=== PATIENT | male | born 1960 | race Caucasian/White ===

== ENCOUNTER → 2016-09-11 | Outpatient (CLI) | payer OTHER | LOC: CIMAGING 14:15 | PROVIDERS: ATTEND Family Medicine Sports Medicine | DX: R05 Cough (principal); K44.9 Diaphragmatic hernia without obstruction or gangrene; I25.10 Atherosclerotic heart disease of native coronary artery without angina pectoris; M51.34 Other intervertebral disc degeneration, thoracic region; R91.8 Other nonspecific abnormal finding of lung field | CPT/HCPCS: 71250-PO ==

== ENCOUNTER 2016-10-16 01:19 | Emergency (ER) | payer OTHER ==
[2016-10-16 01:26] VITALS: TEMP 97.7
[2016-10-16] MEDS ORDERED: ONDANSETRON 4 MG/2 ML VIAL IVP ONE (01:29)
[2016-10-16] MEDS ORDERED: NS 1,000 ML IV ONE ×2 (01:29→02:43)
--- NOTE | 2016-10-16 01:29 | EDPHY ---
H & P Stated Complaint: L flank pain/LLQ pain and urgency x3 hours HPI/ROS: HPI CHIEF COMPLAINT: Left flank pain, left lower quadrant abdominal pain, nausea HISTORY OF PRESENT ILLNESS: Patient very pleasant 56-year-old male significant past medical history for coronary artery disease with 1 stent, presents to the emergency room left-sided flank pain that started 3-4 hours ago and radiating down into her left lower quadrant left testicle. No urinary symptoms. Does have nausea. No vomiting. No fever. Normal bowel movement. No history of kidney stones. No history of diverticulitis or colitis. Has not been sick recently. Patient tells me that pain has been intermittent sharp stabbing over the last 3-4 hours very severe. Does not allowed him to sit still. Past Medical History: Coronary artery disease with 1 stent Past Surgical History: PTCA Social History: Denies daily use of drugs alcohol tobacco products Family History: Noncontributory ROS REVIEW OF SYSTEMS: A comprehensive 10 point review of systems is otherwise negative aside from elements mentioned in the history of present illness. Exam Constitutional triage nursing summary reviewed, vital signs reviewed, awake/ alert. Eyes normal conjunctivae and sclera, EOMI, PERRLA. HENT normal inspection, atraumatic, moist mucus membranes, no epistaxis, neck supple/ no meningismus, no raccoon eyes. Respiratory clear to auscultation bilaterally, normal breath sounds, no respiratory distress, no wheezing. Cardiovascular rate normal, regular rhythm, no murmur, no edema, distal pulses normal. Gastrointestinal tender palpation left lower quadrant, tender palpation left CVA, no rebound, no guarding, normal bowel sounds, no distension, no pulsatile mass. Genitourinary left CVA tenderness mild Musculoskeletal no midline vertebral tenderness, full range of motion, no calf swelling, no tenderness of extremities, no meningismus, good pulses, neurovascularly intact. Skin pink, warm, & dry, no rash, skin atraumatic. Neurologic awake, alert and oriented x 3, AAOx3, moves all 4 extremities equally, motor intact, sensory intact, CN II-XII intact, normal cerebellar, normal vision, normal speech. Psychiatric normal mood/affect. Heme/Lymph/Immune no lymphadenopathy. Differential diagnosis includes but is not limited to and in no particular order : Bowel obstruction, appendicitis, gallbladder disease, diverticulitis, colitis , enteritis, perforated viscus, gastritis, GERD, esophagitis, urinary tract infection, pyelonephritis, kidney stones Medical Decision Making: Plan for this patient IV establishment blood work, urinalysis, patient be medicated with 1 L normal saline IV fluid bolus, IV Dilaudid for pain control IV Zofran may need IV Toradol once creatinine is back. Check urinalysis for blood. CT abdomen pelvis without contrast for kidney stone. Re-evaluation: CT scan of the abdomen pelvis without contrast for left flank pain The results of the study are 2 mm left UVJ stone mild hydronephrosis otherwise unremarkable The study was read by Dr. Desai I viewed the images myself on the PACS system. 0123: re-examination at this time patient is resting comfortably no acute distress. CT scan and blood work urinalysis reviewed. Shows a 2 mm left UVJ stone. Recommend urology follow-up. He understands. Urine strainer. Stover for pain control Flomax. Lots of water. Zofran for nausea. Return emergency room if there is worsening symptoms questions or concerns Source: Patient - Personal History Current Tetanus/Diphtheria Vaccine: Unsure Current Tetanus Diphtheria and Acellular Pertussis (TDAP): Unsure - Medical/Surgical History Hx Asthma: No Hx Chronic Respiratory Disease: No Hx Diabetes: No Hx Cardiac Disease: Yes Hx Renal Disease: No Hx Cirrhosis: No Hx Alcoholism: No Hx HIV/AIDS: No Hx Splenectomy or Spleen Trauma: No Other PMH: CARDIAC STENT/MIGRAINES. herniated disks in neck. stenosis in back. HTN - Social History Smoking Status: Never smoked Constitutional: Initial Vital Signs Temperature (C) 36.5 C 10/16/16 01:24 Heart Rate 47 L 10/16/16 01:24 Respiratory Rate 16 10/16/16 01:24 Blood Pressure 159/94 H 10/16/16 01:24 O2 Sat (%) 93 10/16/16 01:24 O2 Delivery Mode Room Air O2 (L/minute) 2 Allergies/Adverse Reactions: No Known Allergies Allergy (Unverified 08/30/14 09:57) Home Medications: Medication Instructions Recorded Allopurinol [Allopurinol 300 MG 300 mg PO DAILY 04/23/12 (RX)] Ascorbic Acid [Vitamin C 500 mg 1,000 mg PO DAILY 04/23/12 (*)] Cholecalciferol Vit D3 [Vitamin D3 1,000 units PO DAILY 04/23/12 (*)] Aspirin EC [Aspirin EC 325 mg (*)] 325 mg PO DAILY #30 tab 11/09/14 Rosuvastatin Calcium [Crestor] 10 mg PO DAILY 11/09/14 Hydrocodone/APAP 5/325 [Stover 1 - 2 tab PO Q4H PRN #14 tab 10/16/16 5/325] Ondansetron HCl [Zofran] 4 mg PO Q4-6PRN PRN #10 tablet 10/16/16 Tamsulosin HCl [Flomax] 0.4 mg PO DAILY #10 cap 10/16/16 Wellbutrin Xl 10/16/16 Medical Decision Making - Data Points Laboratory Results: Laboratory Results 10/16/16 01:37 10/16/16 01:37 10/16/16 10/16/16 10/16/16 01:37 01:37 01:37 WBC 5.72 10^3/uL 10^3/uL (3.80-9.50) RBC 5.18 10^6/uL 10^6/uL (4.40-6.38) Hgb 15.1 g/dL g/dL (13.7-17.5) Hct 44.0 % % (40.0-51.0) MCV 84.9 fL fL (81.5-99.8) MCH 29.2 pg pg (27.9-34.1) MCHC 34.3 g/dL g/dL (32.4-36.7) RDW 14.6 % % (11.5-15.2) Plt Count 165 10^3/uL 10^3/uL (150-400) MPV 9.3 fL fL (8.7-11.7) Neut % (Auto) 63.6 % % (39.3-74.2) Lymph % (Auto) 26.9 % % (15.0-45.0) [place] % (Auto) 7.2 % % (4.5-13.0) Eos % (Auto) 1.6 % % (0.6-7.6) Baso % (Auto) 0.2 % L % (0.3-1.7) Nucleat RBC Rel Count 0.0 % % (0.0-0.2) Absolute Neuts (auto) 3.64 10^3/uL 10^3/uL (1.70-6.50) Absolute Lymphs (auto) 1.54 10^3/uL 10^3/uL (1.00-3.00) Absolute Monos (auto) 0.41 10^3/uL 10^3/uL (0.30-0.80) Absolute Eos (auto) 0.09 10^3/uL 10^3/uL (0.03-0.40) Absolute Basos (auto) 0.01 10^3/uL L 10^3/uL (0.02-0.10) Absolute Nucleated RBC 0.00 10^3/uL 10^3/uL (0-0.01) Immature Gran % 0.5 % % (0.0-1.1) Immature Gran # 0.03 10^3/uL 10^3/uL (0.00-0.10) Sodium 144 mEq/L mEq/L (134-144) Potassium 4.5 mEq/L mEq/L (3.5-5.2) Chloride 110 mEq/L mEq/L (97-110) Carbon Dioxide 24 mEq/l mEq/l (22-31) Anion Gap 10 mEq/L mEq/L (8-16) BUN 22 mg/dL mg/dL (7-23) Creatinine 1.7 mg/dL H mg/dL (0.7-1.3) Estimated GFR 42 Glucose 167 mg/dL H mg/dL (70-100) Calcium 9.1 mg/dL mg/dL (8.5-10.4) Total Bilirubin 0.7 mg/dL mg/dL (0.1-1.4) Conjugated Bilirubin 0.4 mg/dL mg/dL (0.0-0.5) Unconjugated Bilirubin 0.3 mg/dL mg/dL (0.0-1.1) AST 39 IU/L IU/L (17-59) ALT 66 IU/L IU/L (21-72) Alkaline Phosphatase 102 IU/L IU/L (38-126) Total Protein 6.9 g/dL g/dL (6.3-8.2) Albumin 4.4 g/dL g/dL (3.5-5.0) Lipase 174.0 IU/L IU/L (23-300) Urine Color YELLOW Urine Appearance CLEAR Urine pH 5.0 (5.0-7.5) Ur Specific [place] 1.013 (1.002-1.030) Urine Protein NEGATIVE (NEGATIVE) Urine Ketones NEGATIVE (NEGATIVE) Urine Blood NEGATIVE (NEGATIVE) Urine Nitrate NEGATIVE (NEGATIVE) Urine Bilirubin NEGATIVE (NEGATIVE) Urine Urobilinogen NEGATIVE EU EU (0.2-1.0) Ur Leukocyte Esterase NEGATIVE (NEGATIVE) Ur Culture Indicated? NOT INDICATED (NI) Urine Glucose NEGATIVE (NEGATIVE) Medications Given: Discontinued Medications Hydromorphone HCl (Dilaudid) 0.5 mg IVP EDNOW ONE Stop: 10/16/16 01:35 Last Admin: 10/16/16 01:52 Dose: 0.5 mg Sodium Chloride (Ns) 1,000 mls @ 0 mls/hr IV ONCE ONE PRN Reason: Wide Open Stop: 10/16/16 01:30 Last Admin: 10/16/16 01:38 Dose: 1,000 mls Ondansetron HCl (Zofran) 4 mg IVP EDNOW ONE Stop: 10/16/16 01:30 Last Admin: 10/16/16 01:51 Dose: 4 mg Departure - Departure Disposition: Home, Routine, Self-Care Clinical Impression: Kidney stone on left side Condition: Good Instructions: Kidney Stones (ED), Renal Colic (ED) Additional Instructions: 1. Drink lots of fluids. 2. please follow up with Urology. Referrals: Favio Barcenas MD [Primary Care Provider] - As per Instructions Silver Rocha MD [Medical Doctor] - As per Instructions Prescriptions: Hydrocodone/APAP 5/325 [Stover 5/325] 1 - 2 tab PO Q4H PRN #14 tab PRN Reason: Pain, Moderate Ondansetron HCl [Zofran] 4 mg PO Q4-6PRN PRN #10 tablet PRN Reason: Nausea/Vomiting, Use 1st Tamsulosin HCl [Flomax] 0.4 mg PO DAILY #10 cap
[2016-10-16] MEDS ORDERED: HYDROmorphONE/DILAUDID 1 MG/ML SYR IVP ONE (01:34)
[2016-10-16 01:48] LABS: % IMMATURE GRANULYOCYTES 0.5 % (0.0-1.1); ABSOLUTE IMMATURE GRANULOCYTES 0.03 10^3/uL (0.00-0.10); ADD DIFF? NO; ADD MORPH? NO; ADD SCAN? NO; ATYPICAL LYMPHOCYTE FLAG 10 (0-99); FRAGMENT RBC FLAG 0 (0-99); HEMOGLOBIN 15.1 g/dL (13.7-17.5); LEFT SHIFT FLG 0 (0-99); LIPEMIA HEMOLYSIS FLAG 90 (0-99); MEAN CELL HEMOGLOBIN 29.2 pg (27.9-34.1); MEAN CELL HEMOGLOBIN CONCENTR. 34.3 g/dL (32.4-36.7); MEAN CELL VOLUME 84.9 fL (81.5-99.8); MEAN PLATELET VOLUME 9.3 fL (8.7-11.7); PLATELET CLUMPS FLAG 0 (0-99); PLATELET COUNT 165 10^3/uL (150-400); RED BLOOD CELL COUNT 5.18 10^6/uL (4.40-6.38); RED CELL DISTRIBUTION WIDTH 14.6 % (11.5-15.2)
[2016-10-16 01:50] LABS: COLOR YELLOW; LEUKOCYTE ESTERASE,URINE NEGATIVE (NEGATIVE); NITRITE,URINE NEGATIVE (NEGATIVE)
[2016-10-16 02:02] LABS: ALANINE AMINOTRANSFERASE 66 IU/L (21-72); ALBUMIN 4.4 g/dL (3.5-5.0); ALKALINE PHOSPHATASE 102 IU/L (38-126); ANION GAP 10 mEq/L (8-16); ASPARTATE AMINOTRANSFERASE 39 IU/L (17-59); BILIRUBIN,TOTAL 0.7 mg/dL (0.1-1.4); BILIRUBIN-CONJUGATED 0.4 mg/dL (0.0-0.5); BILIRUBIN-UNCONJUGATED 0.3 mg/dL (0.0-1.1); CALCIUM 9.1 mg/dL (8.5-10.4); CARBON DIOXIDE 24 mEq/l (22-31); CHLORIDE 110 mEq/L (97-110); CREATININE 1.7 mg/dL (0.7-1.3); GLOMERULAR FILTRATION RATE 42; GLUCOSE 167 mg/dL (70-100); POTASSIUM 4.5 mEq/L (3.5-5.2); SODIUM 144 mEq/L (134-144); TOTAL PROTEIN 6.9 g/dL (6.3-8.2)
[2016-10-16] MEDS ORDERED: KETOROLAC 30 MG/1 ML SDV IVP ONE (02:11)
[2016-10-16 03:22] VITALS: BP 131/85; PULSE 67; RESP 14; O2SAT 92
[2016-10-16] MEDS ORDERED: HYDROCOD/APAP 5/325 PREPACK#6 BTL TAKEHOME ONE (03:23)
[2016-10-16] MEDS ORDERED: ONDANSETRON 4MG PREPACK#2 BTL TAKEHOME ONE (03:24)
== END 2016-10-16 03:46 | disposition home or self-care (01) ==
DX: N20.0 Calculus of kidney (principal); I10 Essential (primary) hypertension; I25.10 Atherosclerotic heart disease of native coronary artery without angina pectoris; Z95.5 Presence of coronary angioplasty implant and graft; Z79.82 Long term (current) use of aspirin
CPT/HCPCS: 96374; J1170; J1885; J2405

== ENCOUNTER 2017-04-05 12:32 | Emergency (ER) | payer OTHER ==
--- NOTE | 2017-04-05 13:07 | CPEKG ---
Heart Rate: 66 RR Interval: 909 P-R Interval: 148 QRSD Interval: 92 QT Interval: 412 QTC Interval: 432 P [place]: 52 QRS [place]: -32 T Wave [place]: 46 EKG Severity - OTHERWISE NORMAL ECG - EKG Impression: SINUS RHYTHM EKG Impression: LEFT AXIS DEVIATION Electronically Signed By: Yeyo Bright 05-Apr-2017 21:13:34
--- NOTE | 2017-04-05 13:52 | EDPHY ---
H & P Stated Complaint: sob espcially with reclining x 1 week wih cardiac hx/stents/ afib Time Seen by Provider: 04/05/17 13:39 HPI/ROS: CHIEF COMPLAINT: Dyspnea HISTORY OF PRESENT ILLNESS: The patient presents to the ED for evaluation of symptoms of dyspnea which been occurring for the past 2 weeks. The patient states he only gets symptoms when he is lying flat or resting. He exercises frequently without any symptoms of dyspnea. He describes very brief symptoms of shortness of breath lasting a 1-2 seconds at a time. The patient denies any pleuritic chest pain. He denies asymmetric calf pain or swelling. The patient does have a history of a stent approximately 5 years ago. The patient reports he has had unremarkable angiograms in stress test since that time. The patient had been on medication for high blood pressure including an JULIETA-inhibitor and beta-kayla which she reportedly stop secondary to side effects. The patient denies any recent illness. The patient denies additional acute complaints. REVIEW OF SYSTEMS: A comprehensive 10 point review of systems is otherwise negative aside from elements mentioned in the history of present illness. Source: Patient Exam Limitations: No limitations - Personal History Current Tetanus/Diphtheria Vaccine: Yes - Medical/Surgical History Hx Asthma: No Hx Chronic Respiratory Disease: No Hx Diabetes: No Hx Cardiac Disease: Yes Hx Renal Disease: No Hx Cirrhosis: No Hx Alcoholism: No Hx HIV/AIDS: No Hx Splenectomy or Spleen Trauma: No Other PMH: CARDIAC STENT/MIGRAINES. herniated disks in neck. stenosis in back. HTN - Social History Smoking Status: Never smoked - Physical Exam Exam: General Appearance: Alert, no distress Eyes: Pupils equal and round no pallor or injection ENT, Mouth: Mucous membranes moist Respiratory: There are no retractions, lungs are clear to auscultation Cardiovascular: Regular rate and rhythm Gastrointestinal: Abdomen is soft and nontender, no masses, bowel sounds normal Neurological: A&O, normal motor function, normal sensory exam, normal cranial nerves Skin: Warm and dry, no rashes Musculoskeletal: Neck is supple nontender Extremities: symmetrical, full range of motion Constitutional: Initial Vital Signs Temperature (C) 36.7 C 04/05/17 12:35 Heart Rate 71 04/05/17 12:35 Respiratory Rate 18 04/05/17 12:35 Blood Pressure 165/67 H 04/05/17 12:35 O2 Sat (%) 97 04/05/17 12:35 O2 Delivery Mode Room Air Allergies/Adverse Reactions: No Known Allergies Allergy (Verified 04/05/17 12:34) Home Medications: Medication Instructions Recorded Allopurinol [Allopurinol 300 MG 300 mg PO DAILY 04/23/12 (RX)] Ascorbic Acid [Vitamin C 500 mg 1,000 mg PO DAILY 04/23/12 (*)] Cholecalciferol Vit D3 [Vitamin D3 1,000 units PO DAILY 04/23/12 (*)] Aspirin EC [Aspirin EC 325 mg (*)] 325 mg PO DAILY #30 tab 11/09/14 Rosuvastatin Calcium [Crestor] 10 mg PO DAILY 11/09/14 Ondansetron HCl [Zofran] 4 mg PO Q4-6PRN PRN #10 tablet 10/16/16 Wellbutrin Xl 10/16/16 Diltiazem Cd [Cardizem ER 120 MG 120 mg PO DAILY #30 cap 04/05/17 (*)] Medical Decision Making - Diagnostics EKG Interpretation: EKG: Complete interpretation has been separately recorded in the [facility] archive. Summary impression: Sinus rhythm, left axis deviation ED Course/Re-evaluation: While in the room interviewing the patient I would did observe several unifocal PVCs on the coil winder strap which seems to correlate with the patient's symptoms of brief episodic dyspnea. The patient's EKG is nonischemic. The patient's TSH, CBC, Chem 7 and troponin are normal. The patient was monitored in the emergency department for several hours and was noted to have frequent atrial ectopy. I did curbside his regular water carter Dr. Dominik العلي. The patient has been intolerant to beta blockers in the past. He will be started on diltiazem CD 120 mg daily. He will follow up with Dr. العلي for a follow-up visit in the coming weeks. The patient is advised to return to the emergency department for any chest pain , shortness of breath, anginal symptoms or other concerns. Differential Diagnosis: Differential diagnosis considered includes palpitations, PVCs, PACs, atrial fibrillation, acute coronary syndrome, thyrotoxicosis - Data Points Laboratory Results: Laboratory Results 04/05/17 13:17 04/05/17 13:17 04/05/17 04/05/17 13:17 13:17 WBC 5.59 10^3/uL 10^3/uL (3.80-9.50) RBC 5.25 10^6/uL 10^6/uL (4.40-6.38) Hgb 15.1 g/dL g/dL (13.7-17.5) Hct 44.5 % % (40.0-51.0) MCV 84.8 fL fL (81.5-99.8) MCH 28.8 pg pg (27.9-34.1) MCHC 33.9 g/dL g/dL (32.4-36.7) RDW 15.0 % % (11.5-15.2) Plt Count 168 10^3/uL 10^3/uL (150-400) MPV 9.8 fL fL (8.7-11.7) Neut % (Auto) 46.0 % % (39.3-74.2) Lymph % (Auto) 44.4 % % (15.0-45.0) [place] % (Auto) 7.7 % % (4.5-13.0) Eos % (Auto) 1.1 % % (0.6-7.6) Baso % (Auto) 0.4 % % (0.3-1.7) Nucleat RBC Rel Count 0.0 % % (0.0-0.2) Absolute Neuts (auto) 2.58 10^3/uL 10^3/uL (1.70-6.50) Absolute Lymphs (auto) 2.48 10^3/uL 10^3/uL (1.00-3.00) Absolute Monos (auto) 0.43 10^3/uL 10^3/uL (0.30-0.80) Absolute Eos (auto) 0.06 10^3/uL 10^3/uL (0.03-0.40) Absolute Basos (auto) 0.02 10^3/uL 10^3/uL (0.02-0.10) Absolute Nucleated RBC 0.00 10^3/uL 10^3/uL (0-0.01) Immature Gran % 0.4 % % (0.0-1.1) Immature Gran # 0.02 10^3/uL 10^3/uL (0.00-0.10) Sodium 143 mEq/L mEq/L (134-144) Potassium 4.3 mEq/L mEq/L (3.5-5.2) Chloride 109 mEq/L mEq/L (97-110) Carbon Dioxide 20 mEq/l L mEq/l (22-31) Anion Gap 14 mEq/L mEq/L (8-16) BUN 24 mg/dL H mg/dL (7-23) Creatinine 1.3 mg/dL mg/dL (0.7-1.3) Estimated GFR 57 Glucose 89 mg/dL mg/dL (70-100) Calcium 9.6 mg/dL mg/dL (8.5-10.4) Troponin I < 0.012 ng/mL ng/mL (0.000-0.034) TSH 3.320 uIU/mL uIU/mL (0.465-4.680) Departure - Departure Disposition: Home, Routine, Self-Care Clinical Impression: Premature atrial contractions Condition: Good Instructions: Palpitations (ED) Additional Instructions: 1. Take diltiazem once daily as directed. 2. Return to the ED for any exertional chest pain, shortness of breath, worsening symptoms or other concerns. 3. Please schedule a follow-up appointment with Dr. العلي in the next week. Referrals: Dominik العلي MD [Medical Doctor] - As per Instructions Prescriptions: Diltiazem Cd [Cardizem ER 120 MG (*)] 120 mg PO DAILY #30 cap
[2017-04-05 13:59] LABS: % IMMATURE GRANULYOCYTES 0.4 % (0.0-1.1); ABSOLUTE IMMATURE GRANULOCYTES 0.02 10^3/uL (0.00-0.10); ADD DIFF? NO; ADD MORPH? NO; ADD SCAN? NO; ATYPICAL LYMPHOCYTE FLAG 0 (0-99); FRAGMENT RBC FLAG 0 (0-99); HEMATOCRIT 44.5 % (40.0-51.0); HEMOGLOBIN 15.1 g/dL (13.7-17.5); LEFT SHIFT FLG 0 (0-99); LIPEMIA HEMOLYSIS FLAG 90 (0-99); MEAN CELL HEMOGLOBIN 28.8 pg (27.9-34.1); MEAN CELL HEMOGLOBIN CONCENTR. 33.9 g/dL (32.4-36.7); MEAN CELL VOLUME 84.8 fL (81.5-99.8); MEAN PLATELET VOLUME 9.8 fL (8.7-11.7); PLATELET CLUMPS FLAG 0 (0-99); PLATELET COUNT 168 10^3/uL (150-400); RED BLOOD CELL COUNT 5.25 10^6/uL (4.40-6.38)
[2017-04-05 14:04] LABS: ANION GAP 14 mEq/L (8-16); CALCIUM 9.6 mg/dL (8.5-10.4); CARBON DIOXIDE 20 mEq/l (22-31); CHLORIDE 109 mEq/L (97-110); CREATININE 1.3 mg/dL (0.7-1.3); GLOMERULAR FILTRATION RATE 57; GLUCOSE 89 mg/dL (70-100); POTASSIUM 4.3 mEq/L (3.5-5.2); SODIUM 143 mEq/L (134-144)
[2017-04-05 14:15] LABS: TROPONIN I < 0.012 ng/mL (0.000-0.034)
[2017-04-05 15:19] VITALS: BP 142/89; PULSE 74; RESP 16; TEMP 97.7; O2SAT 97
== END 2017-04-05 15:15 | disposition home or self-care (01) ==
DX: I49.1 Atrial premature depolarization (principal); I10 Essential (primary) hypertension; Z79.82 Long term (current) use of aspirin; Z95.5 Presence of coronary angioplasty implant and graft